=== PATIENT | male | born 1985 | race Caucasian/White ===

== ENCOUNTER 2024-10-03 07:34 | Day surgery (SDC) | payer OTHER, SELFPAY ==
[2024-10-03] VITALS (11 sets, daily range): BP systolic 115–140; BP diastolic 79–100; BMI 33.1
[2024-10-03] MEDS: LOW STRENGTH ASPIRIN 81 MG PO (08:26)
[2024-10-03] MEDS: NSS 263 ML IV (08:28)
[2024-10-03] MEDS: NSS 1000 IV (12:00)
--- NOTE | 2024-10-03 14:11 | ITS.CL.PN ---
Senior Vice President & General Counsel - Procedure Note
Procedure
Procedure Note:
CARDIAC CATHETERIZATION REPORT
Date of Procedure: 10/03/24
Referring: Dr. Alban Abdalla MD
Indication: rest angina, positive cardiac stress test
PROCEDURE(S)
1. left heart catheterization
2. coronary angiography
ACCESS: 6F right radial artery (closure: radial band)
CATHETERS
1. 6F JR4
2. 6F JL3.5
MODERATE SEDATION: 25 minutes of moderate sedation was utilized. An independent medical examiner was present to assist with and help manage the patient's level of consciousness and physiologic status.
HEMODYNAMIC DATA
LV 117/7 (EDP 13) mmHg
AO 119/86 (mean 102) mmHg
CORONARY ANGIOGRAPHY
Dominance: right
LM: large, normal
LAD: large vessel giving rise to a single large diagonal branch and wrapping around the apex. There is a 95% stenosis in the mid-LAD distal to the diagonal and a focal 90% stenosis in the proximal diagonal branch. There are otherwise mild luminal
irregularities only.
LCx: large vessel giving rise to a large OM1, moderate claiber OM2, moderate caliber OM3, and small LPL branch. There is mild ~30-40% ostial narrowing and otherwise trivial luminal irregularities.
RCA: large vessel giving rise to a moderate caliber RPDA, moderate caliber RPL1, small RPL2, and small RPL3. There are mild luminal irregularities in the proximal vessel and otherwise no CAD.
RADIATION: dose 365 mGy; DAP 19.2 Gy*cm2; fluoroscopy time 8.0 min
CONCLUSIONS
1. Severe 1v CAD with 95% mid-LAD and 90% large diagonal stenoses.
2. Normal LV filling pressure and no aortic stenosis.
RECOMMENDATIONS
1. Given progressive anginal symptoms despite anti-anginal therapy and high grade stenoses involving the entire LAD territory, I believe revascularization will benefit the patient. I discussed his case with his outpatient stitch bonding machine drawer in Dr. Parikh
Rm, who is in agreement. Options include PCI and CABG. The patient is reluctant to undergo any invasive procedure, and we had a long discussion via cement gun operator phone of the risks and benefits of both approaches. I explained to the patient that
medical therapy alone is unlikely to control his symptoms and puts him at potential risk of serious heart attack, heart failure, and should his disease progress further. He wishes to confer with friends and family and then get back to us.
2. Aggressive secondary prevention with ASA, high intensity statin, and beta solange.
3. Patient was instructed to present to the emergency room immediately should he have any worsening of his symptoms, and to refrain from high intensity activity until he undergoes revascularization.
Copy to: Dr. Jl Abdalla MD (stitch bonding machine drawer in); Dr. Chino Matos MD (PCP)
Signed: Chris Foster MD, PhD
== END 2024-10-03 14:30 | disposition home or self-care (01) ==
LOC: CATH 07:34
PROVIDERS: ATTENDING PHYSICIAN Student in an Organized Health Care Education/Training Program; FAMILY PHYSICIAN Internal Medicine; OTHER PHYSICIAN Internal Medicine Cardiovascular Disease
DX: I25.118 Atherosclerotic heart disease of native coronary artery with other forms of angina pectoris (principal); R94.39 Abnormal result of other cardiovascular function study; E78.5 Hyperlipidemia, unspecified; Z72.0 Tobacco use; Z82.49 Family history of ischemic heart disease and other diseases of the circulatory system; Z79.82 Long term (current) use of aspirin
CPT/HCPCS: 99152; 99153; C1894; C1769; 93458; Q9967

== ENCOUNTER 2024-10-07 10:27 | Day surgery (SDC) | payer OTHER, SELFPAY ==
[2024-10-07] VITALS (24 sets, daily range): BP systolic 99–152; BP diastolic 59–104; BMI 31.8
[2024-10-07] MEDS: LOW STRENGTH ASPIRIN 81 MG PO (11:21)
[2024-10-07 12:14] LABS: ACT-LR - POC 366 Seconds (116-155)
[2024-10-07 12:43] LABS: ACT-LR - POC 316 Seconds (116-155)
[2024-10-07] MEDS: LASIX 20 MG IV (13:39)
--- NOTE | 2024-10-07 15:32 | PTCARENOTE ---
Cardiac rehab at pt bedside speaking to pt with pt's friend interpreting.
--- NOTE | 2024-10-07 17:13 | W.PN.UPDATE ---
Update Note
Progress Note Update
39 yo male s/p PCI LAD and diag (same day). He denies cp, mild dyspnea given lasix 20mg iv with improvement, cassandra diet, voiding, EKG SR no ST changes, R rad site c/d/i. He will be on DAPT ASA/Plavix. He will continue rosuvastatin and metoprolol.
Cardiac rehab c/s. Activity restrictions reviewed. He will f/u Dr. Abdalla in 2-4 weeks. He is for d/c home after 6pm
--- NOTE | 2024-10-07 17:55 | PTCARENOTE ---
Per pt's friend interpreting for pt, pt c/o midsternal chest pain rated 3/10 and described as pressure. Pt denies SOB, nausea, and or dizziness/ lightheadedness. VSS. Dr Foster aware and EKG obtained. Pt stated he had to void and he urinated 300ml
in urinal. Pt then states chest pain is gone. Dr Foster at pt bedside assessing pt and pt's EKG. Dr Foster states pt ok for discharge. Pt denies any further chest discomfort.
--- NOTE | 2024-10-07 18:52 | ITS.CL.PN ---
Tool Programmer - Procedure Note
Procedure
Procedure Note:
CARDIAC CATHETERIZATION REPORT
Date of Procedure: 10/07/2024
Referring: Dr. Jl Abdalla MD
Indication: severe LAD coronary artery disease with typical angina despite maximally tolerated antianginal therapy, patient declines surgical intervention after discussion of risks and benefits of medical management versus percutaneous
revascularization versus surgical revascularization
PROCEDURE(S)
1. left heart catheterization
2. IVUS LAD
3. PCI with MICHEAL to LAD
4. IVUS diagonal
5. PCI with MICHEAL to diagonal
ACCESS: 6F right radial artery (closure: radial band)
CATHETERS
1. 6F EBU 3.5 guide
MODERATE SEDATION: 60 minutes of moderate sedation was utilized. An independent medical transcription radiology was present to assist with and help manage the patient's level of consciousness and physiologic status.
HEMODYNAMIC DATA
LV 103 overload (EDP 18) mmHg
AO 107/79 (mean 66) mmHg
CORONARY ANGIOGRAPHY
Dominance: right
LM: large, normal
LAD: large vessel giving rise to a single large diagonal branch and wrapping around the apex. There is a 95% stenosis in the mid-LAD distal to the diagonal and a focal 90% stenosis in the proximal diagonal branch. There are otherwise mild luminal
irregularities only.
LCx: large vessel giving rise to a large OM1, moderate caliber OM2, moderate caliber OM3, and small LPL branch. There is mild ~30-40% ostial narrowing and otherwise trivial luminal irregularities.
RCA: not injected as recently imaged with mild disease
PCI with MICHEAL to LAD and diagonal
Heparin was given to achieve ACT greater than 300. The left main was engaged with a 6F EBU 3.5 guide catheter and a Runthrough wire placed in the distal LAD. Initial lesion preparation was performed with a 2.0 semicompliant balloon with full
expansion followed by IVUS demonstrating a reference vessel diameter of 3.25 to 3.5 mm. A 3.0 x 22 mm [place] drug-eluting stent was deployed followed by post dilation throughout with a 3.25 NC balloon to 18 bree. IVUS demonstrated full
expansion but mild undersizing so further post dilation was performed with a 3.5 NC to high-pressure. Final IVUS demonstrated optimal stent sizing with no evidence of edge dissection. The wire was redirected into the diagonal branch. Lesion
preparation was again performed with the 2.0 balloon followed by IVUS demonstrating a 2.5 mm distal reference vessel diameter and 2.75 mm proximal reference vessel diameter. Stenting was performed with a 2.5 x 22 mm [place] drug-eluting stent
postdilated to high-pressure with a 2.5 mm NC balloon distally and 2.75 mm NC balloon proximally. There was mild ostial pinching noted on angiography which improved with injection of intracoronary nitroglycerin, suggesting spasm. IVUS was performed
and demonstrated full stent apposition and expansion and no evidence of edge dissection. The appearance of the ostial diagonal was normal on IVUS, further confirming spasm. Final angiographic result was excellent. The wire and guide were removed and
a TR band placed. The patient was loaded with 600 mg of Plavix.
RADIATION: dose [ ] mGy; DAP [ ] Gy*cm2; fluoroscopy time [ ] min
CONCLUSIONS
1. Severe one-vessel coronary artery disease as described
2. Mildly elevated LV filling pressure and no aortic stenosis
3. Successful IVUS guided and optimized PCI to the LAD with a 3.0 x 22 mm [place] drug-eluting stent postdilated to high-pressure with a 3.5 mm NC balloon
4. Successful IVUS guided and optimized PCI to the diagonal with a 2.5 x 22 mm [place] drug-eluting stent postdilated to high-pressure with a 2.5 mm NC balloon distally and 2.75 mm NC balloon proximally
RECOMMENDATIONS
1. Aggressive secondary prevention of coronary artery disease with high intensity statin to target goal LDL less than 55.
2. DAPT with aspirin and Plavix for 6 months followed by aspirin indefinitely
3. Patient notes fatigue with metoprolol. Reasonable to discontinue given no myocardial infarction or evidence of heart failure.
Copy to: Dr. Jl Abdalla MD (chiropractic doctor); Dr. Chino Matos MD (PCP)
Signed: Chris Foster MD, PhD
== END 2024-10-07 18:05 | disposition home or self-care (01) ==
LOC: CATH 10:27
PROVIDERS: ATTENDING PHYSICIAN Student in an Organized Health Care Education/Training Program; FAMILY PHYSICIAN Internal Medicine; OTHER PHYSICIAN Internal Medicine Cardiovascular Disease
DX: I25.118 Atherosclerotic heart disease of native coronary artery with other forms of angina pectoris (principal); E78.5 Hyperlipidemia, unspecified; F17.210 Nicotine dependence, cigarettes, uncomplicated
CPT/HCPCS: 92978; 85347; 93005; 93458; 99152; 99153; C1725; C1753; C1874; C1894; C9600; C9601; Q9967